=== PATIENT | female | born 1965 | race African-American/Black ===

== ENCOUNTER 2019-08-11 14:54 | Emergency (ER) | payer OTHER ==
[~2019-08-11] VITALS: Ht 165.1 cm; Wt 73.5 kg
[2019-08-11 19:04] VITALS: BP 148/93
[2019-08-11] MEDS ORDERED: HYDROcodone-ACET 10/325MG TAB PO ONE (19:15)
[2019-08-11] MEDS ORDERED: DexAMETHasone SOD PHOS 10MG/1ML VIAL INJ IM ONE (19:15)
[2019-08-11] MEDS ORDERED: BACLOFEN 10 MG TAB PO ONE (19:15)
== END 2019-08-11 20:29 | disposition home or self-care (01) ==
LOC: ER 15:24
DX: G56.33 Lesion of radial nerve, bilateral upper limbs (principal); M62.838 Other muscle spasm
CPT/HCPCS: 96372; 99283; J1100